=== PATIENT | female | born 2000 | race American Indian/Alaskan Native ===

== ENCOUNTER 2019-12-20 20:14 | Emergency (ER) | payer SELFPAY ==
--- NOTE | 2019-12-20 20:34 | Emergency Department Report ---
Blank Doc - Documentation Documentation: 19-year-old female that presents with chest pain and SOB. This initial assessment/diagnostic orders/clinical plan/treatment(s) is/are subject to change based on patient's health status, clinical progression and re- assessment by fellow clinical providers in the ED. Further treatment and workup at subsequent clinical providers discretion. Patient/guardians urged not to elope from the ED as their condition may be serious if not clinically assessed and managed. Initial orders include: 1- Patient sent to [facility] for further evaluation and treatment 2- cardiac workup
[2019-12-20 21:22] LABS: Basophils % (Auto) 0.6 % (0.0-1.8); Eosinophils # (Auto) 0.1 K/mm3 (0.0-0.4); Eosinophils % (Auto) 1.1 % (0.0-4.3); Hematocrit 39.3 % (30.3-42.9); Hemoglobin 13.5 gm/dl (10.1-14.3); Lymphocytes # (Auto) 3.3 K/mm3 (1.2-5.4); Lymphocytes % (Auto) 50.7 % (13.4-35.0); Mean Corpuscular HGB Conc 34 % (30-34); Mean Corpuscular Volume 104 fl (79-97); Monocytes # (Auto) 0.5 K/mm3 (0.0-0.8); Monocytes % (Auto) 7.4 % (0.0-7.3); Platelet Count 212 K/mm3 (140-440); Red Blood Count 3.77 M/mm3 (3.65-5.03); Red Cell Distribution Width 13.1 % (13.2-15.2)
[2019-12-20 21:38] LABS: Alanine Aminotransferase 9 units/L (7-56); Albumin 4.2 g/dL (3.9-5); Blood Urea Nitrogen 9 mg/dL (7-17); Calcium 9.3 mg/dL (8.4-10.2); Hemolysis Index 17
[2019-12-20 21:41] LABS: BUN/Creatinine Ratio 15
--- NOTE | 2019-12-20 21:49 | XRay Report ---
CHEST 2 VIEWS 2142 INDICATION / CLINICAL INFORMATION: Chest Pain COMPARISON: None available. FINDINGS: SUPPORT DEVICES: None. HEART / MEDIASTINUM: No significant abnormality. LUNGS / PLEURA: No significant pulmonary or pleural abnormality. No pneumothorax. ADDITIONAL FINDINGS: No significant additional findings. IMPRESSION: No significant acute abnormality Signer Name: Bipin Coates MD Signed: 12/20/2019 9:44 PM Workstation Name: [id number]
[2019-12-20 21:55] LABS: Bacteria,Urine 2+ /HPF (Negative); Bilirubin,Urine NEG (Negative); Blood,Urine LG (Negative); Color,Urine Red (Yellow); Urobilinogen,Urine < 2.0 mg/dL (<2.0)
[2019-12-20 21:59] LABS: RBC,Urine > 182.0 /HPF (0.0-6.0)
--- NOTE | 2019-12-20 22:36 | Emergency Department Report ---
ED Chest Pain HPI - General Chief Complaint: Chest Pain Stated Complaint: DIZZINESS/CHEST PAIN Time Seen by Provider: 12/20/19 20:30 Source: patient Mode of arrival: Ambulatory Limitations: No Limitations - History of Present Illness Initial Comments: 19-year-old female with a past medical history of insulin-dependent diabetes and smoker presents to the hospital with complaints of intermittent chest pain for the last 2 days. Pain described as a tightness in the center upper portion of her chest. Pain has become more persistent today. Is increased with movement. No increased pain with deep inspiration. No shortness of breath, cough, calf tenderness, leg edema, history of PE/DVT. Patient does smoke cigarettes. Recent travel to from [place] with return last week. Patient complains of felt lightheaded blood glucose noted to be 46 in triage. Patient was provided food. While eating her repeat glucose was 103. Patient is on subcutaneous insulin and has had less to eat today while waiting to be evaluated in the ED. She is currently on her menstrual cycle. - Related Data Previous Rx's Medication Instructions Recorded Last Taken Type Ibuprofen [Motrin] 600 mg PO Q8H PRN #20 tablet 12/21/19 Unknown Rx Allergies Allergy/AdvReac Type Severity Reaction Status Date / Time No Known Allergies Allergy Unverified 12/20/19 20:55 Heart Score - HEART Score History: Slightly suspicious EKG: Normal Age: < 45 Risk factors: 1-2 risk factors Troponin: < normal limit HEART Score: 1 ED Review of Systems ROS: Stated complaint: DIZZINESS/CHEST PAIN Other details as noted in HPI Comment: All other systems reviewed and negative Other: General: No acute distress Head: Atraumatic Eyes: normal appearance ENT: Moist mucous membranes Neck: Normal appearance, no midline tenderness Chest: Clear to auscultation bilaterally CV: Regular rate and rhythm Abdomen: Soft, normal bowel sounds, nontender, nondistended, no rebound or guarding Back: Normal inspection Extremity: Normal inspection, full range of motion Neuro: Alert O x 3, no facial asymmetry, speech clear, no gross motor sensory deficit Psych: Appropriate behavior Skin: No rash ED Past Medical Hx - Past Medical History Previous Medical History?: Yes Hx Diabetes: Yes - Surgical History Past Surgical History?: No - Social History Smoking Status: Current Every Day Smoker Substance Use Type: None - Medications Home Medications: Home Medications Medication Instructions Recorded Confirmed Last Taken Type Ibuprofen [Motrin] 600 mg PO Q8H PRN #20 tablet 12/21/19 Unknown Rx ED Physical Exam - General Limitations: No Limitations - Other Other exam information: General: No acute distress Head: Atraumatic Eyes: normal appearance ENT: Moist mucous membranes Neck: Normal appearance, no midline tenderness, chest wall nontender Chest: Clear to auscultation bilaterally CV: Regular rate and rhythm Abdomen: Soft, normal bowel sounds, nontender, nondistended, no rebound or guarding Back: Normal inspection Extremity: Normal inspection, full range of motion, no calf tenderness or leg edema Neuro: Alert O x 3, no facial asymmetry, speech clear, no gross motor sensory deficit Psych: Appropriate behavior Skin: No rash ED Course Vital Signs 12/20/19 12/20/19 12/21/19 20:33 23:07 00:03 Temperature 97.9 F 98.1 F Pulse Rate 88 89 Respiratory 16 18 18 Rate Blood Pressure 148/100 Blood Pressure 131/91 [Left] O2 Sat by Pulse 99 98 Oximetry VALENTINE score - Valentine Score Age > 65: (0) No Aspirin use within the Past 7 Days: (0) No 3 or more CAD Risk Factors: (0) No 2 or more Angina events in past 24 hrs: (0) No Known CAD with more than 50% Stenosis: (0) No Elevated Cardiac Markers: (0) No ST Deviation Greater than 0.5mm: (0) No VALENTINE Score: 0 ED Medical Decision Making - Lab Data Result diagrams: 12/20/19 20:50 12/20/19 20:50 Lab Results 12/20/19 12/20/19 12/20/19 Range/Units 20:50 20:50 20:50 WBC 6.6 (4.5-11.0) K/mm3 RBC 3.77 (3.65-5.03) M/mm3 Hgb 13.5 (10.1-14.3) gm/dl Hct 39.3 (30.3-42.9) % MCV 104 H (79-97) fl MCH 36 H (28-32) pg MCHC 34 (30-34) % RDW 13.1 L (13.2-15.2) % Plt Count 212 (140-440) K/mm3 Lymph % (Auto) 50.7 H (13.4-35.0) % [place] % (Auto) 7.4 H (0.0-7.3) % Eos % (Auto) 1.1 (0.0-4.3) % Baso % (Auto) 0.6 (0.0-1.8) % Lymph # (Auto) 3.3 (1.2-5.4) K/mm3 [place] # (Auto) 0.5 (0.0-0.8) K/mm3 Eos # (Auto) 0.1 (0.0-0.4) K/mm3 Baso # (Auto) 0.0 (0.0-0.1) K/mm3 Seg Neutrophils % 40.2 (40.0-70.0) % Seg Neutrophils # 2.6 (1.8-7.7) K/mm3 D-Dimer (0-234) ng/mlDDU Sodium 142 (137-145) mmol/L Potassium 3.6 (3.6-5.0) mmol/L Chloride 101.9 (98-107) mmol/L Carbon Dioxide 25 (22-30) mmol/L Anion Gap 19 mmol/L BUN 9 (7-17) mg/dL Creatinine 0.6 (0.6-1.2) mg/dL Estimated GFR > 60 ml/min BUN/Creatinine Ratio 15 % Glucose 46 L (65-100) mg/dL POC Glucose (70-105) mg/dL Calcium 9.3 (8.4-10.2) mg/dL Total Bilirubin 0.70 (0.1-1.2) mg/dL AST 20 (5-40) units/L ALT 9 (7-56) units/L Alkaline Phosphatase 104 (35-129) units/L Troponin T < 0.010 (0.00-0.029) ng/mL Total Protein 7.3 (6.3-8.2) g/dL Albumin 4.2 (3.9-5) g/dL Albumin/Globulin Ratio 1.4 % HCG, Qual Negative (Negative) Urine Color (Yellow) Urine Turbidity (Clear) Urine pH (5.0-7.0) Ur Specific [place] (1.003-1.030) Urine Protein (Negative) mg/dL Urine Glucose (UA) (Negative) mg/dL Urine Ketones (Negative) mg/dL Urine Blood (Negative) Urine Nitrite (Negative) Urine Bilirubin (Negative) Urine Urobilinogen (<2.0) mg/dL Ur Leukocyte Esterase (Negative) Urine WBC (Auto) (0.0-6.0) /HPF Urine RBC (Auto) (0.0-6.0) /HPF U Epithel Cells (Auto) (0-13.0) /HPF Urine Bacteria (Auto) (Negative) /HPF 12/20/19 12/20/19 12/20/19 Range/Units 21:40 22:40 22:46 WBC (4.5-11.0) K/mm3 RBC (3.65-5.03) M/mm3 Hgb (10.1-14.3) gm/dl Hct (30.3-42.9) % MCV (79-97) fl MCH (28-32) pg MCHC (30-34) % RDW (13.2-15.2) % Plt Count (140-440) K/mm3 Lymph % (Auto) (13.4-35.0) % [place] % (Auto) (0.0-7.3) % Eos % (Auto) (0.0-4.3) % Baso % (Auto) (0.0-1.8) % Lymph # (Auto) (1.2-5.4) K/mm3 [place] # (Auto) (0.0-0.8) K/mm3 Eos # (Auto) (0.0-0.4) K/mm3 Baso # (Auto) (0.0-0.1) K/mm3 Seg Neutrophils % (40.0-70.0) % Seg Neutrophils # (1.8-7.7) K/mm3 D-Dimer 149.43 (0-234) ng/mlDDU Sodium (137-145) mmol/L Potassium (3.6-5.0) mmol/L Chloride (98-107) mmol/L Carbon Dioxide (22-30) mmol/L Anion Gap mmol/L BUN (7-17) mg/dL Creatinine (0.6-1.2) mg/dL Estimated GFR ml/min BUN/Creatinine Ratio % Glucose (65-100) mg/dL POC Glucose 103 (70-105) mg/dL Calcium (8.4-10.2) mg/dL Total Bilirubin (0.1-1.2) mg/dL AST (5-40) units/L ALT (7-56) units/L Alkaline Phosphatase (35-129) units/L Troponin T (0.00-0.029) ng/mL Total Protein (6.3-8.2) g/dL Albumin (3.9-5) g/dL Albumin/Globulin Ratio % HCG, Qual (Negative) Urine Color Red (Yellow) Urine Turbidity Clear (Clear) Urine pH 7.0 (5.0-7.0) Ur Specific [place] 1.002 L (1.003-1.030) Urine Protein 100 mg/dl (Negative) mg/dL Urine Glucose (UA) Neg (Negative) mg/dL Urine Ketones Neg (Negative) mg/dL Urine Blood Lg (Negative) Urine Nitrite Neg (Negative) Urine Bilirubin Neg (Negative) Urine Urobilinogen < 2.0 (<2.0) mg/dL Ur Leukocyte Esterase Neg (Negative) Urine WBC (Auto) 4.0 (0.0-6.0) /HPF Urine RBC (Auto) > 182.0 (0.0-6.0) /HPF U Epithel Cells (Auto) 1.0 (0-13.0) /HPF Urine Bacteria (Auto) 2+ (Negative) /HPF 12/20/19 Range/Units 23:53 WBC (4.5-11.0) K/mm3 RBC (3.65-5.03) M/mm3 Hgb (10.1-14.3) gm/dl Hct (30.3-42.9) % MCV (79-97) fl MCH (28-32) pg MCHC (30-34) % RDW (13.2-15.2) % Plt Count (140-440) K/mm3 Lymph % (Auto) (13.4-35.0) % [place] % (Auto) (0.0-7.3) % Eos % (Auto) (0.0-4.3) % Baso % (Auto) (0.0-1.8) % Lymph # (Auto) (1.2-5.4) K/mm3 [place] # (Auto) (0.0-0.8) K/mm3 Eos # (Auto) (0.0-0.4) K/mm3 Baso # (Auto) (0.0-0.1) K/mm3 Seg Neutrophils % (40.0-70.0) % Seg Neutrophils # (1.8-7.7) K/mm3 D-Dimer (0-234) ng/mlDDU Sodium (137-145) mmol/L Potassium (3.6-5.0) mmol/L Chloride (98-107) mmol/L Carbon Dioxide (22-30) mmol/L Anion Gap mmol/L BUN (7-17) mg/dL Creatinine (0.6-1.2) mg/dL Estimated GFR ml/min BUN/Creatinine Ratio % Glucose (65-100) mg/dL POC Glucose 85 (70-105) mg/dL Calcium (8.4-10.2) mg/dL Total Bilirubin (0.1-1.2) mg/dL AST (5-40) units/L ALT (7-56) units/L Alkaline Phosphatase (35-129) units/L Troponin T (0.00-0.029) ng/mL Total Protein (6.3-8.2) g/dL Albumin (3.9-5) g/dL Albumin/Globulin Ratio % HCG, Qual (Negative) Urine Color (Yellow) Urine Turbidity (Clear) Urine pH (5.0-7.0) Ur Specific [place] (1.003-1.030) Urine Protein (Negative) mg/dL Urine Glucose (UA) (Negative) mg/dL Urine Ketones (Negative) mg/dL Urine Blood (Negative) Urine Nitrite (Negative) Urine Bilirubin (Negative) Urine Urobilinogen (<2.0) mg/dL Ur Leukocyte Esterase (Negative) Urine WBC (Auto) (0.0-6.0) /HPF Urine RBC (Auto) (0.0-6.0) /HPF U Epithel Cells (Auto) (0-13.0) /HPF Urine Bacteria (Auto) (Negative) /HPF - EKG Data -: EKG Interpreted by De EKG shows normal: sinus rhythm, ST-T waves (No STEMI) Rate: normal - EKG Data 12/21/19 00:16 Repeat EKG performed and 23:50 without acute changes - Radiology Data Radiology results: report reviewed CHEST 2 VIEWS 0353 INDICATION / CLINICAL INFORMATION: Chest Pain COMPARISON: None available. FINDINGS: SUPPORT DEVICES: None. HEART / MEDIASTINUM: No significant abnormality. LUNGS / PLEURA: No significant pulmonary or pleural abnormality. No pneumothorax. ADDITIONAL FINDINGS: No significant additional findings. IMPRESSION: No significant acute abnormality - Medical Decision Making Patient is a low pretest probability for pulmonary embolism and has a negative D-dimer. Chest x-ray unremarkable. No hypoxia or tachycardia. EKG normal sinus without acute abnormality and no acute changes x2. Pain for several days with a negative troponin. Patient received IM Toradol for chest pain as well as menstrual cramps since patient is currently on her menstrual cycle. She was discharged home with atypical chest pain likely muscle skeletal in origin as his symptoms are worse with movement and she does not endorse shortness of breath or systemic symptoms. Patient also had hypoglycemia likely secondary to taking her insulin and not eating very much today during ED stay. Glucose improved with food and patient has snacks to take on her way home. She did not have any alteration in mental status.. Patient encouraged to stop smoking. Repeat vitals show improvement in BP Critical Care Time: No Critical care attestation.: If time is entered above; I have spent that time in minutes in the direct care of this critically ill patient, excluding procedure time. ED Disposition Clinical Impression: Musculoskeletal chest pain, Smoker, Hypoglycemia associated with diabetes Disposition: DC-01 TO HOME OR SELFCARE Is pt being admited?: No Does the pt Need Aspirin: No Condition: Stable Instructions: Chest Pain (ED), Diabetes Mellitus Type 1 in Adults (ED), How to Stop Smoking (ED) Additional Instructions: Take the medication as prescribed. Follow-up with your doctor or doctor/clinic provided. Return if symptoms worsen as indicated by your discharge instructions. Prescriptions: Ibuprofen [Motrin] 600 mg PO Q8H PRN #20 tablet PRN Reason: Pain Referrals: PRIMARY MD ERIC [Primary Care Provider] - 3-5 Days [facility] [Provider Group] - 3-5 Days ANDRIA KUNZ MD [Staff Physician] - 3-5 Days Time of Disposition: 00:15
[2019-12-20] MEDS ORDERED: KETOROLAC 60 MG/2 ML INJ IM ONE (22:46)
[2019-12-21 00:12] VITALS: BP 131/91
== END 2019-12-21 00:34 | disposition home or self-care (01) ==
LOC: ED 20:14
DX: E11.649 Type 2 diabetes mellitus with hypoglycemia without coma (principal); E11.65 Type 2 diabetes mellitus with hyperglycemia; F17.200 Nicotine dependence, unspecified, uncomplicated; Z79.899 Other long term (current) drug therapy
CPT/HCPCS: 36415; 71046; 80053; 81001; 82962; 84484; 84703; 85025; 85379; 93005; 96372; 99284; J1885

== ENCOUNTER 2020-06-01 00:06 | Emergency (ER) | payer MEDICAID ==
[2020-06-01 01:22] LABS: Hematocrit 42.9 % (30.3-42.9); Hemoglobin 14.7 gm/dl (10.1-14.3); Mean Corpuscular HGB Conc 34 % (30-34); Mean Corpuscular Volume 103 fl (79-97); Platelet Count 169 K/mm3 (140-440); Red Blood Count 4.18 M/mm3 (3.65-5.03); Red Cell Distribution Width 12.8 % (13.2-15.2)
[2020-06-01 01:40] LABS: Bilirubin,Urine NEG (Negative); Blood,Urine NEG (Negative); Color,Urine Straw (Yellow); Protein,Urine <15 mg/dL mg/dL (Negative); RBC,Urine < 1.0 /HPF (0.0-6.0); Urobilinogen,Urine < 2.0 mg/dL (<2.0)
[2020-06-01 01:43] LABS: Alanine Aminotransferase 20 units/L (7-56); Albumin 4.6 g/dL (3.9-5); BUN/Creatinine Ratio 12; Blood Urea Nitrogen 11 mg/dL (7-17); Calcium 9.2 mg/dL (8.4-10.2); Hemolysis Index 8
[2020-06-01 01:57] VITALS: BP 124/77
[2020-06-01 02:16] LABS: RBC Morphology Normal; Total Cells Counted 100
== END 2020-06-01 04:50 | disposition left against medical advice (07) ==
LOC: ED 00:06
DX: M54.9 Dorsalgia, unspecified (principal); Z53.21 Procedure and treatment not carried out due to patient leaving prior to being seen by health care provider
CPT/HCPCS: 36415; 80053; 81001; 82962; 83690; 84703; 85007; 85025

== ENCOUNTER 2020-08-18 22:39 | Emergency (ER) | payer MEDICAID ==
[2020-08-19 01:20] LABS: Basophils % (Auto) 0.5 % (0.0-1.8); Eosinophils % (Auto) 0.7 % (0.0-4.3); Hematocrit 40.4 % (30.3-42.9); Hemoglobin 13.6 gm/dl (10.1-14.3); Lymphocytes # (Auto) 2.5 K/mm3 (1.2-5.4); Lymphocytes % (Auto) 44.8 % (13.4-35.0); Mean Corpuscular HGB Conc 34 % (30-34); Mean Corpuscular Volume 102 fl (79-97); Monocytes # (Auto) 0.6 K/mm3 (0.0-0.8); Monocytes % (Auto) 10.1 % (0.0-7.3); Platelet Count 233 K/mm3 (140-440); Red Blood Count 3.96 M/mm3 (3.65-5.03); Red Cell Distribution Width 12.8 % (13.2-15.2)
[2020-08-19 01:36] LABS: Alanine Aminotransferase 14 units/L (7-56); Albumin 4.5 g/dL (3.9-5); BUN/Creatinine Ratio 14; Blood Urea Nitrogen 11 mg/dL (7-17); Calcium 9.3 mg/dL (8.4-10.2); Hemolysis Index 6
[2020-08-19] MEDS ORDERED: SODIUM CHLORIDE 0.9% 1000 ML 1,000 ML IV ONE ×2 (01:50)
[2020-08-19] MEDS ORDERED: FAMOTIDINE 20 MG/2 ML INJ IV ONE (01:54)
[2020-08-19] MEDS ORDERED: INSULIN REGULAR, HUMAN 100 UNITS/1 ML IV ONE (01:54)
[2020-08-19] MEDS ORDERED: ONDANSETRON 4 MG/2 ML INJ IV ONE (01:54)
--- NOTE | 2020-08-19 01:56 | Emergency Department Report ---
ED General Adult HPI - General Chief complaint: Hyperglycemia Stated complaint: HYPERGLYCEMIA Time Seen by Provider: 08/19/20 01:49 Source: patient Mode of arrival: Wheelchair Limitations: No Limitations - History of Present Illness Initial comments: Patient is a 20-year-old F [place] female with past medical history of diabetes who is presenting with poorly controlled glucose levels over the last 2 days. Patient states her glucose has been greater than 300 over the last several days. She has had several days of nausea vomiting and some mild diarrhea. Denies any abdominal pain but states she has some mild cramping especially when she is nauseous. Patient is had several episodes of loose watery stools. Denies any blood in her vomit or stool. Denies fevers body aches. States cough is mild and nonproductive. Denies any shortness of breath. Patient was not vaccinated against COVID-19 at this time. Severity scale (0 -10): 0 - Related Data Previous Rx's Medication Instructions Recorded Last Taken Type Ibuprofen [Motrin] 600 mg PO Q8H PRN #20 tablet 12/21/19 Unknown Rx Dicyclomine [Bentyl] 20 mg PO QID #10 tablet 08/19/20 Unknown Rx Diphenoxylate/Atropine [Lomotil] 1 tab PO Q4H PRN #10 tablet 08/19/20 Unknown Rx Famotidine [Pepcid] 20 mg PO BID #20 tablet 08/19/20 Unknown Rx Ondansetron [Zofran Odt] 4 mg PO Q8HR #10 tab.rapdis 08/19/20 Unknown Rx Allergies Allergy/AdvReac Type Severity Reaction Status Date / Time No Known Allergies Allergy Unverified 12/20/19 20:55 ED Review of Systems ROS: Stated complaint: HYPERGLYCEMIA Other details as noted in HPI Comment: All other systems reviewed and negative ED Past Medical Hx - Past Medical History Previous Medical History?: Yes Hx Diabetes: Yes - Surgical History Past Surgical History?: Yes Additional Surgical History: x1 - Social History Smoking Status: Current Every Day Smoker Substance Use Type: None - Medications Home Medications: Home Medications Medication Instructions Recorded Confirmed Last Taken Type Ibuprofen [Motrin] 600 mg PO Q8H PRN #20 tablet 12/21/19 Unknown Rx Dicyclomine [Bentyl] 20 mg PO QID #10 tablet 08/19/20 Unknown Rx Diphenoxylate/Atropine [Lomotil] 1 tab PO Q4H PRN #10 tablet 08/19/20 Unknown Rx Famotidine [Pepcid] 20 mg PO BID #20 tablet 08/19/20 Unknown Rx Ondansetron [Zofran Odt] 4 mg PO Q8HR #10 tab.rapdis 08/19/20 Unknown Rx ED Physical Exam - General Limitations: No Limitations General appearance: alert, in no apparent distress - Head Head exam: Present: atraumatic, normocephalic - Eye Eye exam: Present: normal appearance - ENT ENT exam: Present: mucous membranes moist - Neck Neck exam: Present: normal inspection - Respiratory Respiratory exam: Present: normal lung sounds bilaterally. Absent: respiratory distress, wheezes, rales, rhonchi - Cardiovascular Cardiovascular Exam: Present: regular rate, normal rhythm, normal heart sounds. Absent: systolic murmur, diastolic murmur, rubs, gallop - GI/Abdominal GI/Abdominal exam: Present: soft, normal bowel sounds. Absent: distended, tenderness, guarding, rebound, rigid - Extremities Exam Extremities exam: Present: normal inspection - Back Exam Back exam: Present: normal inspection - Neurological Exam Neurological exam: Present: alert, oriented X3 - Psychiatric Psychiatric exam: Present: normal affect, normal mood - Skin Skin exam: Present: warm, dry, intact, normal color. Absent: rash ED Course Vital Signs 08/18/20 08/19/20 08/19/20 22:49 02:26 02:31 Temperature 98.2 F Pulse Rate 107 H 81 84 Respiratory 16 18 18 Rate Blood Pressure 136/98 Blood Pressure 137/94 [Left] O2 Sat by Pulse 99 100 99 Oximetry ED Medical Decision Making - Lab Data Result diagrams: 08/19/20 00:58 08/19/20 00:58 Lab Results 08/19/20 08/19/20 Range/Units 00:58 00:58 WBC 5.6 (4.5-11.0) K/mm3 RBC 3.96 (3.65-5.03) M/mm3 Hgb 13.6 (10.1-14.3) gm/dl Hct 40.4 (30.3-42.9) % MCV 102 H (79-97) fl MCH 34 H (28-32) pg MCHC 34 (30-34) % RDW 12.8 L (13.2-15.2) % Plt Count 233 (140-440) K/mm3 Lymph % (Auto) 44.8 H (13.4-35.0) % [place] % (Auto) 10.1 H (0.0-7.3) % Eos % (Auto) 0.7 (0.0-4.3) % Baso % (Auto) 0.5 (0.0-1.8) % Lymph # (Auto) 2.5 (1.2-5.4) K/mm3 [place] # (Auto) 0.6 (0.0-0.8) K/mm3 Eos # (Auto) 0.0 (0.0-0.4) K/mm3 Baso # (Auto) 0.0 (0.0-0.1) K/mm3 Seg Neutrophils % 43.9 (40.0-70.0) % Seg Neutrophils # 2.5 (1.8-7.7) K/mm3 Sodium 130 L (137-145) mmol/L Potassium 4.3 (3.6-5.0) mmol/L Chloride 91.0 L (98-107) mmol/L Carbon Dioxide 23 (22-30) mmol/L Anion Gap 20 mmol/L BUN 11 (7-17) mg/dL Creatinine 0.8 (0.6-1.2) mg/dL Estimated GFR > 60 ml/min BUN/Creatinine Ratio 14 % Glucose 429 H (65-100) mg/dL Calcium 9.3 (8.4-10.2) mg/dL Total Bilirubin 0.40 (0.1-1.2) mg/dL AST 19 (5-40) units/L ALT 14 (7-56) units/L Alkaline Phosphatase 139 H (35-129) units/L Total Protein 8.0 (6.3-8.2) g/dL Albumin 4.5 (3.9-5) g/dL Albumin/Globulin Ratio 1.3 % - Radiology Data CXR WNL - Medical Decision Making While in the waiting room the patient taken 10 units of subcutaneous insulin. Her blood glucose has decreased to the 200s. Patient was received 2 L of normal saline to help better regulate her blood glucose levels and correct some minor dehydration. Chest x-ray is within normal limits. Given the patient's cough congestion mild lower backache and nausea and diarrhea it is possible the pat emigdio does have COVID-19. She has been urged to get a outpatient rapid test at urgent care. Patient given medication for symptomatic relief, she will be able to be discharged home. Critical care attestation.: If time is entered above; I have spent that time in minutes in the direct care of this critically ill patient, excluding procedure time. ED Disposition Clinical Impression: Hyperglycemia, Mild dehydration, Suspected COVID-19 virus infection, Viral gastroenteritis Disposition: TO HOME OR SELFCARE Is pt being admited?: No Does the pt Need Aspirin: No Condition: Stable Instructions: Dehydration, Adult, [id number], Hyperglycemia, [id number], Viral Gastroenteritis, Adult, [id number], Viral Illness, Adult Referrals: PRIMARY CARE, [Primary Care Provider] - 3-5 Days Time of Disposition: 03:07
[2020-08-19 02:26] LABS: HCG Qualitative,Urine Negative (Negative)
[2020-08-19 02:28] LABS: Bacteria,Urine 1+ /HPF (Negative); Bilirubin,Urine NEG (Negative); Blood,Urine NEG (Negative); Color,Urine Straw (Yellow); Mucus,Urine FEW /HPF; Protein,Urine <15 mg/dL mg/dL (Negative); RBC,Urine < 1.0 /HPF (0.0-6.0); Urobilinogen,Urine < 2.0 mg/dL (<2.0)
--- NOTE | 2020-08-19 03:06 | XRay Report ---
CHEST 1 VIEW INDICATION / CLINICAL INFORMATION: cough. FINDINGS: SUPPORT DEVICES: None. HEART / MEDIASTINUM: No significant abnormality. LUNGS / PLEURA: No significant pulmonary or pleural abnormality. No pneumothorax. ADDITIONAL FINDINGS: No significant additional findings. IMPRESSION: 1. No acute findings. Signer Name: Jey Padilla MD Signed: 08/19/2020 3:02 AM Workstation Name: [id number]
[2020-08-19 04:39] VITALS: BP 134/99
== END 2020-08-19 05:06 | disposition home or self-care (01) ==
LOC: ED 22:39
DX: E11.65 Type 2 diabetes mellitus with hyperglycemia (principal); Z20.822 Contact with and (suspected) exposure to COVID-19; A08.4 Viral intestinal infection, unspecified; E86.0 Dehydration; F17.200 Nicotine dependence, unspecified, uncomplicated; Z98.890 Other specified postprocedural states; Z79.1 Long term (current) use of non-steroidal anti-inflammatories (NSAID); Z79.899 Other long term (current) drug therapy
CPT/HCPCS: 36415; 71045; 80053; 81001; 81025; 82805; 82962; 85025; 96361; 96374; 96375; 99284; J2405; J7030; J1815